=== PATIENT | female | born 1980 | race Hispanic/Latino ===

== ENCOUNTER 2018-04-06 05:28 | Emergency (ER) | payer MEDICAID ==
[2018-04-06] MEDS ORDERED: MOTRIN ONE (05:41)
[2018-04-06] MEDS ORDERED: MOTRIN PO ONE (05:42)
[2018-04-06] MEDS ORDERED: PERCOCET 5/325 ONE (05:46)
[2018-04-06] MEDS ORDERED: PERCOCET 5/325 PO ONE (05:46)
--- NOTE | 2018-04-06 06:22 | XRay Report ---
FINAL REPORT EXAM: XR HAND 3+V RT HISTORY: hand thru window with glass and laceration TECHNIQUE: Three views of the right hand were obtained. FINDINGS: The 4th and 5th fingers are in flexion. There is no evidence of acute displaced fracture or dislocation. The wrist joint is not show any acute changes. The soft tissues show no evidence of radiopaque foreign bodies. IMPRESSION: No acute fracture or dislocation. No evidence of radiopaque foreign bodies in the soft tissues.
--- NOTE | 2018-04-06 07:32 | Emergency Department Report ---
ED Laceration HPI - HPI Chief Complaint: Wound/Laceration Stated Complaint: FALL Time Seen by Provider: 04/06/18 07:28 Occurred When: Today Location: Upper Extremity (right hand) Severity: severe Tetanus Status: Not up to Date Laceration Symptoms: Yes Pain (10/10), No Foreign Body Sensation, No Numbness, No Weakness Other History: This is a 37-year-old patient reports that she tripped over a dog this morning which is once a bathroom and her right hand was injured through the window. She is reporting pain 10 out of 10 to her right hand. Pain is achy and right hand is stiff. No medication taken is that she came directly to the emergency room. She reports that it was bleeding but she placed pressure site. Pain is worse with movement better with rest. Tetanus vaccine is up-to-date ED Review of Systems ROS: Stated complaint: FALL Other details as noted in HPI Constitutional: denies: chills, fever Eyes: denies: eye pain, eye discharge Respiratory: denies: cough, shortness of breath, SOB with exertion, SOB at rest , wheezing Cardiovascular: denies: chest pain, palpitations, edema, syncope Gastrointestinal: as per HPI. denies: nausea, vomiting, diarrhea Genitourinary: denies: discharge Musculoskeletal: joint swelling, arthralgia. denies: back pain Skin: other (laceration to right hand). denies: rash, lesions Neurological: denies: headache, weakness, numbness, paresthesias ED Past Medical Hx - Past Medical History Previous Medical History?: Yes Hx Hypertension: Yes - Surgical History Past Surgical History?: Yes Hx Cholecystectomy: Yes Additional Surgical History: tubal, partial hysterectomy - Family History Family history: hypertension - Social History Smoking Status: Current Every Day Smoker Substance Use Type: None - Medications Home Medications: Home Medications Medication Instructions Recorded Confirmed Last Taken Type Acetaminophen/Codeine [Tylenol 1 tab PO Q6H PRN #12 tab 04/06/18 Unknown Rx /Codeine # 3 tab] Ciprofloxacin HCl [Ciprofloxacin 500 mg PO Q12HR 7 Days #14 tab 04/06/18 Unknown Rx TAB] Ibuprofen [Motrin] 800 mg PO Q8HR PRN #15 tablet 04/06/18 Unknown Rx Laceration Physical Exam - Exam General: Vital signs noted. No distress. Alert and acting appropriately. This is a 37-year-old female well-nourished well-developed in no acute distress. Wound Length (cm): 4 (irregular and circular) Laceration Location: Upper Extremity (right hand fourth and fifth metacarpal bone area) Full Body Front + Back: 1 - Patient 4 cm irregular, flap-like laceration, subcutaneous layer index. Minimal bleeding. Superficial pieces of glass on skin surface that was extensively irrigated. X-ray showed no foreign body or fracture dislocation. Patient is stable and no signs of tendon injury with no rigidity and movement of fingers Laceration Exam: Yes Normal Distal CMS (+2 pulses. No clubbing, cyanosis or edema. No neurovascular compromise), No Foreign Body, No Exposed Tendon, Vessel , or Nerve, No Tendon Injury ED Course Vital Signs 04/06/18 05:37 Temperature 98.4 F Pulse Rate 88 Respiratory 18 Rate Blood Pressure 154/85 O2 Sat by Pulse 96 Oximetry - Reevaluation(s) Reevaluation #1: 04/06/18 09:28 Patient clindamycin 600 mg IM, Motrin 800 mg by mouth, Boostrix 0.5 mL IM and Percocet 5/325 one tablet by mouth with no adverse reaction - Laceration /Wound Repair Right Dorsal Hand Wound Location: upper extremity Wound Length (cm): 4 (CM) Wound Explored: no foreign body removed Irrigated w/ Saline (ccs): 500 Betadine Prep?: Yes Anesthesia: 0.5% Sensorcaine (Marcaine) Volume Anesthetic (ccs): 10 Wound Debrided: extensive Wound Repaired With: sutures Suture Size/Type: 4:0, proline Number of Sutures: 14 Layer Closure?: No Sterile Dressing Applied?: Yes ED Medical Decision Making - Radiology Data Radiology results: report reviewed X-ray of right hand 3 views dictated by radiologist and report reviewed by myself. Patient has no acute fracture or dislocation. No evidence of radiopaque foreign bodies in the soft tissue. Patient: HIMA HIGUERA MR#: [id number] : 1980 Acct:[id number] Age/Sex: 37 / F ADM Date: 04/06/18 Loc: ED Attending Dr: Ordering Physician: ALEJO KELLEY MD Date of Service: 04/06/18 Procedure(s): XR hand 3+V RT Accession Number(s): [id number] cc: ALEJO KELLEY MD Fluoro Time In Minutes: FINAL REPORT EXAM: XR HAND 3+V RT HISTORY: hand thru window with glass and laceration TECHNIQUE: Three views of the right hand were obtained. FINDINGS: The 4th and 5th fingers are in flexion. There is no evidence of acute displaced fracture or dislocation. The wrist joint is not show any acute changes. The soft tissues show no evidence of radiopaque foreign bodies. IMPRESSION: No acute fracture or dislocation. No evidence of radiopaque foreign bodies in the soft tissues. Transcribed By: RB Dictated By: SELINA GAMBOA MD Electronically Authenticated By: SELINA GAMBOA MD Signed Date/Time: 04/06/18616 DD/ 6 TD/TT: 04/06/18616 - Medical Decision Making ED course This is a 37-year-old female here reports that she accidentally cut her right hand on glass this morning when she is getting up to use the bathroom. She is reporting pain 10 out of 10. No numbness or tingling. She is able to move all her extremities including fingers. Patient is here to be evaluated Patient evaluated by myself and found to have a 4 cm subcutaneous layer laceration without any tendon injury. Physical exam fine normal hand movements with no restriction in movement of fingers. She is able to touch all her fingers with her thumb on the right hand without any difficulties. X-ray of right hand dictated by radiologist and reviewed by myself and findings for normal exam without any foreign body. Patient was given Percocet and Motrin for pain which relieved her pain. Tetanus vaccine is updated. Antibiotic given. She voiced understanding after I gave her information on her x-ray results. A/P 1: Simple laceration right hand-laceration repair ,please see procedure note for detail no need for antibiotic. Information given on suture care. Patient is given Percocet 5/325 one tablet, Motrin 800 mg by mouth. Clindamycin 600 mg IM and Boostrix 0.5 mL injection to update tetanus. Patient to return to emergency room in 7-10 days to have sutures removed and to follow-up with her primary care in 2-3 days 2: Arthralgia right hand-controlled with pain medication. Right hand 3 view x- ray negative for fracture or dislocation. Educated on suture care, medication, returning to emergency room for removal of suture and she voiced understanding. Pt discharged home with her family in stable condition with prescription for Motrin, Tylenol 3 and ciprofloxacin. Her vital signs are stable and she is in stable condition and she is to follow-up with her primary care physician in 2-3 days. She voiced understanding the discharge instructions. - Differential Diagnosis fracture open versus closed, laceration Critical care attestation.: If time is entered above; I have spent that time in minutes in the direct care of this critically ill patient, excluding procedure time. ED Disposition Clinical Impression: Arthralgia of right hand Laceration of right hand without complication, excluding fingers Qualifiers: Encounter type: initial encounter Qualified Code(s): S61.411A - Laceration without foreign body of right hand, initial encounter Disposition: TO HOME OR SELFCARE Is pt being admited?: No Does the pt Need Aspirin: No Condition: Stable Instructions: Suture Care (ED), Laceration (ED) Additional Instructions: Please see discharge instruction in acute wound care Apply warm compresses to affected area 4 times a day to facilitate then and increased drainage return to emergency room in 4 days for removal of packing Keep affected area clean and dry Take Tylenol 3 for severe pain and please do not drive or operate heavy machinery while taking this medication Motrin for mild to moderate pain and please take medication with food to prevent nausea or irritation to stomach lining Take ciprofloxacin for infection Return to the emergency room if, he developed fever, chills, increased pain and drainage from site, nausea and vomited, increase in redness and/or weakness. Prescriptions: Acetaminophen/Codeine [Tylenol /Codeine # 3 tab] 1 tab PO Q6H PRN #12 tab PRN Reason: Pain, Moderate (4-6) Ciprofloxacin HCl [Ciprofloxacin TAB] 500 mg PO Q12HR 7 Days #14 tab Ibuprofen [Motrin] 800 mg PO Q8HR PRN #15 tablet PRN Reason: mild to miderate pain Referrals: PRIMARY CARE,MD [Primary Care Provider] - 2-3 Days return to ,ED in 10 days [Other] - 7-10 days Forms: Accompanied Note, Work/School Release Form(ED)
[2018-04-06] MEDS ORDERED: CLEOCIN IM ONE (07:33)
[2018-04-06] MEDS ORDERED: NACL 0.9% IR PRN (08:42)
[2018-04-06] MEDS ORDERED: MARCAINE 0.5% INFILTRATI ONE ×2 (08:45→08:48)
[2018-04-06] MEDS ORDERED: MARCAINE 0.25% INFILTRATI ONE (09:00)
[2018-04-06] MEDS ORDERED: BOOSTRIX IM ONE (09:51)
[2018-04-06 10:07] VITALS: BP 146/81
== END 2018-04-06 10:00 | disposition home or self-care (01) ==
LOC: ED 05:28
DX: S61.411A Laceration without foreign body of right hand, initial encounter (principal); M79.641 Pain in right hand; I10 Essential (primary) hypertension; F17.200 Nicotine dependence, unspecified, uncomplicated; Z90.49 Acquired absence of other specified parts of digestive tract; W18.30XA Fall on same level, unspecified, initial encounter; Y93.89 Activity, other specified; Y99.8 Other external cause status; Y92.89 Other specified places as the place of occurrence of the external cause
CPT/HCPCS: 90471; 90715; 96372

== ENCOUNTER 2019-07-10 11:48 | Emergency (ER) | payer SELFPAY ==
[2019-07-10 12:00] VITALS: BP 144/74
--- NOTE | 2019-07-10 12:00 | Event Note ---
ED Screening Note Date of service: 07/10/19 Time: 11:58 ED Screening Note: This is a 39 y.o. F. that presents to the ER with pruritic rash to genital area x 2 days. PMH of HTN Current smoker This initial assessment/diagnostic orders/clinical plan/treatment(s) is/are subject to change based on patients health status, clinical progression and re- assessment by fellow clinical providers in the ED. Further treatment and workup at subsequent clinical providers discretion. Patient/guardian urged not to elope from the ED as their condition may be serious if not clinically assessed and managed. Initial orders include:
--- NOTE | 2019-07-10 12:32 | Emergency Department Report ---
ED Rash HPI - HPI Chief Complaint: Skin Rash Stated Complaint: VAG PAIN/RASH Time Seen by Provider: 07/10/19 11:58 Duration: 1 Day Location: Abdomen, Other (groin area) Suspected Cause: Unknown Rash Symptoms: Yes Itching (to rash site), No Tongue/Oral Swelling, No Breathing Difficulties, No Choking Sensation, No Wheezing/Dyspnea, No Peeling, No Blistering, No Fever, No Lightheaded, No Malaise, No Myalgias Severity: severe (8/10 and sharp) Other History: Patient reports that she woke up this morning without rash to her abdomen and vaginal area and she does not know what it is. Did not eat anything or taken anything unusual. She reports it is itchy and denies any cough, respiratory distress, chest pain, wheezing, sore throat or difficulty swallowing. She is had similar rash in the area before but reports that it is sharp pain at 8 out of 10. Denies any drainage at site. She has medication allergies and reports that she did not use any medication that she is allergic to no does she use latex that she is allergic to latex. No medication taken prior to coming to the emergency room. ED Review of Systems ROS: Stated complaint: VAG PAIN/RASH Other details as noted in HPI Constitutional: denies: chills, fever ENT: denies: throat pain, congestion Respiratory: denies: cough, shortness of breath, SOB with exertion, wheezing Cardiovascular: denies: dyspnea on exertion Gastrointestinal: denies: abdominal pain, nausea, vomiting Musculoskeletal: denies: joint swelling, arthralgia Skin: rash (painful), pruritus Neurological: denies: headache ED Past Medical Hx - Past Medical History Previous Medical History?: Yes Hx Hypertension: Yes - Surgical History Past Surgical History?: Yes Hx Cholecystectomy: Yes Additional Surgical History: tubal, partial hysterectomy - Family History Family history: hypertension - Social History Smoking Status: Current Every Day Smoker Substance Use Type: None - Medications Home Medications: Home Medications Medication Instructions Recorded Confirmed Last Taken Type Acetaminophen/Codeine [Tylenol 1 tab PO Q6H PRN #12 tab 04/06/18 Unknown Rx /Codeine # 3 tab] Ciprofloxacin HCl [Ciprofloxacin 500 mg PO Q12HR 7 Days #14 tab 04/06/18 Unknown Rx TAB] Ibuprofen [Motrin] 800 mg PO Q8HR PRN #15 tablet 04/06/18 Unknown Rx Clindamycin [Clindamycin CAP] 300 mg PO Q8H 10 Days #30 cap 07/10/19 Unknown Rx Econazole 1% [Spectazole] 1 applicatio TP BID 7 Days #1 tube 07/10/19 Unknown Rx Fluconazole [Diflucan TAB] 200 mg PO QDAY 3 Days #3 tablet 07/10/19 Unknown Rx Rash Exam - Exam General: Vital signs noted. No distress. Alert and acting appropriately. This is a 39-year-old female well-nourished well-developed in no acute distress. HEENT: No Periorbital Edema, No Conjuctival Injection, No Chemosis, No Perioral Edema, No Tongue Edema, No Uvular Edema, No Compromised Airway, No Drooling Lungs: Yes Good Air Exchange, No Wheezes, No Ronchi, No Stridor, No Cough, No Labored Respirations, No Retractions, No Use of Accessory Muscles, No Other Abnormal Lung Sounds Heart: Yes Regular, No Murmur Front/Back of Body, Lg (Color): 1 - Erythema, rash to bilateral groin area under her skin folds. Noted tomorrow and pubis underskin full. Nontender to palpate. Flat without any induration and appearing to be fungal infection with superimposed mild cellulitis. Area is warm to touch. Skin: Yes Excoriations (to skin folds mons pubis and bilateral groin area), Yes Erythema (mon pubis and the bilateral groin area), No Weeping, No Tenderness (rash sites), No Edema, No Encrustations, No Other Other: Positive: Abdomen Normal, Neurologic Normal, Musculoskeletal Normal ED Course Vital Signs 07/10/19 11:58 Temperature 98.5 F Pulse Rate 82 Respiratory 18 Rate Blood Pressure 144/74 O2 Sat by Pulse 97 Oximetry - Reevaluation(s) Reevaluation #1: 07/10/19 12:42 Patient stable throughout ED course and will be discharged home on medication for fungal and bacterial rash ED Medical Decision Making - Medical Decision Making This is a 39-year-old female with physical findings for fungal infection of the scan with superimposed bacterial infection. She stable and in no acute distress and no signs of anaphylaxis. I discussed the patient that she has to keep the area beneath her skin folds clean and dry as infection is easily grown in areas that is warm and moist. I also discussed treatment plan, medication and diagnosis with her and she voiced understanding. I discussed with her that she needs to follow-up with a primary care physician which she does not have one so I will refer her to Dr. Elena Arreguin and [facility] along with tomato grader as she says she has Medicaid. Patient discharged home in stable condition with prescription for clindamycin and Diflucan on with antifungal a zole ointment. She is in stable condition. Critical care attestation.: If time is entered above; I have spent that time in minutes in the direct care of this critically ill patient, excluding procedure time. ED Disposition Clinical Impression: Tinea corporis, Pelvic cellulitis in female Disposition: [id number] TO HOME OR SELFCARE Is pt being admited?: No Does the pt Need Aspirin: No Condition: Stable Instructions: Cellulitis (ED), Tinea Corporis (ED) Additional Instructions: Please keep affected area clean and dry See tomato grader and primary care in 2-3 days If area becomes worse, return to the emergency room. Take medication as prescribed Prescriptions: Clindamycin [Clindamycin CAP] 300 mg PO Q8H 10 Days #30 cap Econazole 1% [Spectazole] 1 applicatio TP BID 7 Days #1 tube Referrals: JAUN HUNTER MD [Staff Physician] - 2-3 Days NADIRA DONNELLY MD [Staff Physician] - 2-3 Days [facility] [Outside] - 2-3 Days Forms: Work/School Release Form(ED)
== END 2019-07-10 13:19 | disposition home or self-care (01) ==
LOC: ED 11:48
DX: N73.2 Unspecified parametritis and pelvic cellulitis (principal); B35.4 Tinea corporis; I10 Essential (primary) hypertension; F17.200 Nicotine dependence, unspecified, uncomplicated; Z90.711 Acquired absence of uterus with remaining cervical stump; Z90.49 Acquired absence of other specified parts of digestive tract; Z91.040 Latex allergy status; Z88.0 Allergy status to penicillin; Z88.2 Allergy status to sulfonamides

== ENCOUNTER 2019-09-09 23:05 | Emergency (ER) | payer SELFPAY ==
[2019-09-10] MEDS ORDERED: IPRATROPIUM/ALBUTEROL SULFATE 3 ML AMPUL.NEB IH ONE (03:08)
[2019-09-10] MEDS ORDERED: IBUPROFEN 800 MG TAB PO ONE (03:08)
[2019-09-10] MEDS ORDERED: predniSONE 20 MG TAB PO ONE (03:08)
[2019-09-10] MEDS ORDERED: ONDANSETRON 4 MG ODT TAB PO ONE (03:09)
--- NOTE | 2019-09-10 03:51 | XRay Report ---
CHEST 2 VIEWS INDICATION / CLINICAL INFORMATION: cough, fever. COMPARISON: 08/10/2015 FINDINGS: SUPPORT DEVICES: None. HEART / MEDIASTINUM: No significant abnormality. LUNGS / PLEURA: There is minimal lingular density likely a small area of pneumonia. Lungs and pleural spaces otherwise are clear with no infiltrate, edema or effusion. No pneumothorax. ADDITIONAL FINDINGS: No significant additional findings. IMPRESSION: 1. Minimal lingular pneumonia Signer Name: Nathan Arita MD Signed: 09/10/2019 3:47 AM Workstation Name: [id number]
[2019-09-10] MEDS ORDERED: levoFLOXacin 750 MG TAB PO ONE (04:07)
[2019-09-10 04:10] VITALS: BP 111/61
--- NOTE | 2019-09-10 04:13 | Emergency Department Report ---
- General Chief Complaint: Upper Respiratory Infection Stated Complaint: FLU LIKE SX Source: patient Mode of arrival: Ambulatory Limitations: No Limitations - History of Present Illness Initial Comments: Patient is a 39-year-old white female with no past medical history except chronic tobacco abuse who presents to the ED with complaint of acute onset persistent nasal and sinus congestion, dry cough, wheezing, subjective fever and chills, diffuse body aches and headache for the last 3 days. Patient denies dizziness, chest pain, shortness of breath, abdominal pain, sore throat, nausea, vomiting, diarrhea, change in vision or syncope. Patient states that she has been taking pwpm-ild-wlkelyc decongestants with no relief. MD Complaint: fever, cough, rhinorrhea, nasal congestion, sinus pain -: Sudden, days(s) (3) Severity: severe Severity scale (0 -10): 7 Quality: sharp, aching Consistency: constant Improves With: nothing Worsens With: nothing Associated Symptoms: denies other symptoms, fever, chills, myalgias, headache, rhinorrhea, nasal congestion, cough. denies: sore throat, stiff neck, chest pain, shortness of breath, abdominal pain, nausea, vomiting, diarrhea, dysuria, rash, right sweats, weight loss, hoarseness, ear pain Treatments Prior to Arrival: none - Related Data Previous Rx's Medication Instructions Recorded Last Taken Type Acetaminophen/Codeine [Tylenol 1 tab PO Q6H PRN #12 tab 04/06/18 Unknown Rx /Codeine # 3 tab] Ciprofloxacin HCl [Ciprofloxacin 500 mg PO Q12HR 7 Days #14 tab 04/06/18 Unknown Rx TAB] Clindamycin [Clindamycin CAP] 300 mg PO Q8H 10 Days #30 cap 07/10/19 Unknown Rx Econazole 1% [Spectazole] 1 applicatio TP BID 7 Days #1 tube 07/10/19 Unknown Rx Fluconazole [Diflucan TAB] 200 mg PO QDAY 3 Days #3 tablet 07/10/19 Unknown Rx ALBUTEROL Inhaler (OR & NICU) 1 - 2 puff IH Q6H PRN #1 inh 09/10/19 Unknown Rx [ProAir HFA Inhaler] Benzonatate [Tessalon Perles] 100 mg PO Q8HR #30 capsule 09/10/19 Unknown Rx Cetirizine HCl [Zyrtec 10mg tab] 10 mg PO DAILY #30 tablet 09/10/19 Unknown Rx Ibuprofen [Motrin 800 MG tab] 800 mg PO Q8HR PRN #24 tablet 09/10/19 Unknown Rx Prednisone [predniSONE 10 mg 10 mg PO .TAPER #21 tab.ds.pk 09/10/19 Unknown Rx (6-Day Pack, 21 Tabs)] levoFLOXacin [Levaquin] 750 mg PO QDAY #7 tablet 09/10/19 Unknown Rx Allergies Allergy/AdvReac Type Severity Reaction Status Date / Time latex Allergy Rash Verified 09/09/19 23:22 Penicillins Allergy Unknown Verified 09/09/19 23:22 sulfamethoxazole Allergy Hives Verified 09/09/19 23:22 [From Bactrim] trimethoprim [From Bactrim] Allergy Hives Verified 09/09/19 23:22 ED Review of Systems ROS: Stated complaint: FLU LIKE SX Other details as noted in HPI Constitutional: chills, fever, malaise Eyes: denies: eye pain, eye discharge, vision change ENT: congestion. denies: ear pain, throat pain Respiratory: cough, shortness of breath. denies: wheezing Cardiovascular: denies: chest pain, palpitations Endocrine: no symptoms reported Gastrointestinal: denies: abdominal pain, nausea, vomiting, diarrhea Genitourinary: denies: urgency, dysuria, discharge Musculoskeletal: denies: back pain, joint swelling, arthralgia Skin: denies: rash, lesions Neurological: headache. denies: weakness, paresthesias Psychiatric: denies: anxiety, depression Hematological/Lymphatic: denies: easy bleeding, easy bruising ED Past Medical Hx - Past Medical History Previous Medical History?: Yes Hx Hypertension: Yes - Surgical History Past Surgical History?: Yes Hx Cholecystectomy: Yes Additional Surgical History: tubal, partial hysterectomy - Social History Smoking Status: Current Every Day Smoker Substance Use Type: None - Medications Home Medications: Home Medications Medication Instructions Recorded Confirmed Last Taken Type Acetaminophen/Codeine [Tylenol 1 tab PO Q6H PRN #12 tab 04/06/18 Unknown Rx /Codeine # 3 tab] Ciprofloxacin HCl [Ciprofloxacin 500 mg PO Q12HR 7 Days #14 tab 04/06/18 Unknown Rx TAB] Clindamycin [Clindamycin CAP] 300 mg PO Q8H 10 Days #30 cap 07/10/19 Unknown Rx Econazole 1% [Spectazole] 1 applicatio TP BID 7 Days #1 tube 07/10/19 Unknown Rx Fluconazole [Diflucan TAB] 200 mg PO QDAY 3 Days #3 tablet 07/10/19 Unknown Rx ALBUTEROL Inhaler (OR & NICU) 1 - 2 puff IH Q6H PRN #1 inh 09/10/19 Unknown Rx [ProAir HFA Inhaler] Benzonatate [Tessalon Perles] 100 mg PO Q8HR #30 capsule 09/10/19 Unknown Rx Cetirizine HCl [Zyrtec 10mg tab] 10 mg PO DAILY #30 tablet 09/10/19 Unknown Rx Ibuprofen [Motrin 800 MG tab] 800 mg PO Q8HR PRN #24 tablet 09/10/19 Unknown Rx Prednisone [predniSONE 10 mg 10 mg PO .TAPER #21 tab.ds.pk 09/10/19 Unknown Rx (6-Day Pack, 21 Tabs)] levoFLOXacin [Levaquin] 750 mg PO QDAY #7 tablet 09/10/19 Unknown Rx ED Physical Exam - General Limitations: No Limitations General appearance: alert, in no apparent distress - Head Head exam: Present: atraumatic, normocephalic, normal inspection - Eye Eye exam: Present: normal appearance, PERRL, EOMI Pupils: Present: normal accommodation - ENT ENT exam: Present: normal orophraynx, mucous membranes moist, TM's normal bilaterally, normal external ear exam, other (grossly congested nasal passages, palpable frontal sinus tenderness) - Neck Neck exam: Present: normal inspection, full ROM, lymphadenopathy - Respiratory Respiratory exam: Present: wheezes (mildly diffuse coarse wheezes throughout). Absent: respiratory distress, rales, rhonchi, stridor, chest wall tenderness, prolonged expiratory - Cardiovascular Cardiovascular Exam: Present: regular rate, normal rhythm, normal heart sounds. Absent: systolic murmur, diastolic murmur, rubs, gallop - GI/Abdominal GI/Abdominal exam: Present: soft, normal bowel sounds. Absent: tenderness, guarding, hyperactive bowel sounds, organomegaly - Extremities Exam Extremities exam: Present: normal inspection, full ROM, normal capillary refill - Back Exam Back exam: Present: normal inspection, full ROM. Absent: muscle spasm, paraspinal tenderness - Neurological Exam Neurological exam: Present: alert, oriented X3, CN II-XII intact, normal gait, reflexes normal - Psychiatric Psychiatric exam: Present: normal affect, normal mood - Skin Skin exam: Present: warm, dry, intact, normal color. Absent: rash ED Course Vital Signs 09/09/19 09/10/19 23:25 03:35 Temperature 98.5 F Pulse Rate 76 Respiratory 20 20 Rate Blood Pressure 150/83 O2 Sat by Pulse 97 Oximetry ED Medical Decision Making - Radiology Data Radiology results: report reviewed, image reviewed Findings [facility] [address] [place] [address] XRay Report Signed Patient: HIMA HIGUERA MR#: [id number] : 1980 Acct:[id number] Age/Sex: 39 / F ADM Date: 09/09/19 Loc: ED Attending Dr: Ordering Physician: SELINA CORRAL Date of Service: 09/10/19 Procedure(s): XR chest routine 2V Accession Number(s): [id number] cc: SELINA CORRAL Fluoro Time In Minutes: CHEST 2 VIEWS INDICATION / CLINICAL INFORMATION: cough, fever. COMPARISON: 08/10/2015 FINDINGS: SUPPORT DEVICES: None. HEART / MEDIASTINUM: No significant abnormality. LUNGS / PLEURA: There is minimal lingular density likely a small area of pneumonia. Lungs and pleural spaces otherwise are clear with no infiltrate, edema or effusion. No pneumothorax. ADDITIONAL FINDINGS: No significant additional findings. IMPRESSION: 1. Minimal lingular pneumonia Signer Name: Nathan Arita MD Signed: 09/10/2019 3:47 AM Workstation Name: [id number] Transcribed By: Dictated By: Nathan Arita MD Electronically Authenticated By: Nathan Arita MD Signed Date/Time: 09/10/19346 DD/ 5 TD/TT: - Medical Decision Making This is a 49-year-old female who presented to the ED with nasal and sinus congestion, subjective fever, chills, dry cough with wheezing and shortness of breath, diffuse body aches and pains for the last 3 days. In the ED, patient is alert and oriented 3 and is not in any distress. Chest x-ray shows minimal lingular pneumonia. Patient was treated in the ED with DuoNeb and prednisone. Patient also received initial oral Levaquin 750 mg by mouth 1. On reevaluation, patient's wheezing has resolved and patient was discharged home on medications including antibiotics for suspected lingular pneumonia. Patient was advised to drink plenty of fluids and to take medications and follow up with her primary care physician in 7-10 days for reevaluation or return to the ED immediately if symptoms get worse. - Differential Diagnosis Bronchitis; URI; Pneumonia; Flu; Strep Critical care attestation.: If time is entered above; I have spent that time in minutes in the direct care of this critically ill patient, excluding procedure time. ED Disposition Clinical Impression: Acute upper respiratory infection, Fever with chills Community acquired pneumonia Qualifiers: Laterality: unspecified laterality Qualified Code(s): J18.9 - Pneumonia, unspecified organism Disposition: TO HOME OR SELFCARE Is pt being admited?: No Does the pt Need Aspirin: No Condition: Stable Instructions: Bacterial Pneumonia (ED), Community-acquired Pneumonia (ED), Upper Respiratory Infection (ED) Additional Instructions: Take medications with food, drink plenty of fluids and follow-up with your primary care physician in 5-7 days for reevaluation. Return to the emergency department immediately for further evaluation if his symptoms get worse. Prescriptions: levoFLOXacin [Levaquin] 750 mg PO QDAY #7 tablet Ibuprofen [Motrin 800 MG tab] 800 mg PO Q8HR PRN #24 tablet PRN Reason: mild to miderate pain Prednisone [predniSONE 10 mg (6-Day Pack, 21 Tabs)] 10 mg PO .TAPER #21 tab.ds.pk ALBUTEROL Inhaler (OR & NICU) [ProAir HFA Inhaler] 1 - 2 puff IH Q6H PRN #1 inh PRN Reason: Dyspnea Benzonatate [Tessalon Perles] 100 mg PO Q8HR #30 capsule Cetirizine HCl [Zyrtec 10mg tab] 10 mg PO DAILY #30 tablet Referrals: JAUN HUNTER MD [Staff Physician] - 7-10 days Forms: Work/School Release Form(ED) Time of Disposition: 04:10 Print Language: BENGALI
== END 2019-09-10 04:25 | disposition home or self-care (01) ==
LOC: ED 23:05
DX: J18.9 Pneumonia, unspecified organism (principal); J06.9 Acute upper respiratory infection, unspecified; I10 Essential (primary) hypertension; F17.200 Nicotine dependence, unspecified, uncomplicated; Z98.51 Tubal ligation status; Z90.710 Acquired absence of both cervix and uterus; Z79.899 Other long term (current) drug therapy; Z88.0 Allergy status to penicillin; Z88.2 Allergy status to sulfonamides; Z91.040 Latex allergy status
CPT/HCPCS: 71046; 94640; 99283; J7512; Q0162

== ENCOUNTER 2020-06-27 12:56 | Emergency (ER) | payer SELFPAY ==
[2020-06-27 13:20] VITALS: BP 160/83
[2020-06-27] MEDS ORDERED: ALBUTEROL 2.5 MG/3 ML NEBU IH ONE (15:34)
[2020-06-27] MEDS ORDERED: IPRATROPIUM 0.02% NEBU 2.5 ML IH ONE (15:34)
[2020-06-27] MEDS ORDERED: dexAMETHasone 20 MG/5 ML VIAL IM ONE (15:34)
--- NOTE | 2020-06-27 15:49 | XRay Report ---
XR chest routine 2V INDICATION / CLINICAL INFORMATION: cough, SOB COMPARISON: September 10, 2019 FINDINGS: SUPPORT DEVICES: None. HEART / MEDIASTINUM: No significant abnormality. LUNGS / PLEURA: Lungs are clear. Costophrenic sulci are sharp. No pneumothorax. ADDITIONAL FINDINGS: No significant additional findings. IMPRESSION: 1. No acute findings. Signer Name: Frederick Mora MD Signed: 06/27/2020 3:44 PM Workstation Name: [id number]
--- NOTE | 2020-06-27 15:59 | Emergency Department Report ---
- General Chief Complaint: Upper Respiratory Infection Stated Complaint: COUGHINGHEADACHE/BODYACHE Time Seen by Provider: 06/27/20 14:57 Source: patient Mode of arrival: Ambulatory Limitations: No Limitations - History of Present Illness Initial Comments: Patient is a 40-year-old female presents emergency room with complaints of URI symptoms that began 3 days ago. She has associated cough, chest congestion, headache, rhinorrhea, diarrhea, shortness of breath. She denies any fever, vomiting, abdominal pain, chest pain. She denies any sick contacts. She denies any recent travel. She denies any past medical history. She has an allergy to latex, penicillin, Bactrim. She states that she is an every day smoker. She states her last menstrual cycle was 5 years ago secondary to a partial hysterectomy. - Related Data Previous Rx's Medication Instructions Recorded Last Taken Type Acetaminophen/Codeine [Tylenol 1 tab PO Q6H PRN #12 tab 04/06/18 Unknown Rx /Codeine # 3 tab] Ciprofloxacin HCl [Ciprofloxacin 500 mg PO Q12HR 7 Days #14 tab 04/06/18 Unknown Rx TAB] Clindamycin [Clindamycin CAP] 300 mg PO Q8H 10 Days #30 cap 07/10/19 Unknown Rx Econazole 1% [Spectazole] 1 applicatio TP BID 7 Days #1 tube 07/10/19 Unknown Rx Fluconazole [Diflucan TAB] 200 mg PO QDAY 3 Days #3 tablet 07/10/19 Unknown Rx Albuterol Mdi (or & Nicu Only) 1 - 2 puff IH Q6H PRN #1 inh 09/10/19 Unknown Rx [ProAir HFA Inhaler] Benzonatate [Tessalon Perles] 100 mg PO Q8HR #30 capsule 09/10/19 Unknown Rx Cetirizine HCl [Zyrtec 10mg tab] 10 mg PO DAILY #30 tablet 09/10/19 Unknown Rx Ibuprofen [Motrin 800 MG tab] 800 mg PO Q8HR PRN #24 tablet 09/10/19 Unknown Rx Prednisone [predniSONE 10 mg 10 mg PO .TAPER #21 tab.ds.pk 09/10/19 Unknown Rx (6-Day Pack, 21 Tabs)] levoFLOXacin [Levaquin] 750 mg PO QDAY #7 tablet 09/10/19 Unknown Rx Albuterol Sulfate [Proventil Hfa] 6.7 gm IH TID PRN #1 hfa.aer.ad 06/27/20 Unknown Rx Azithromycin [Zithromax TAB] 250 mg PO QDAY 5 Days #6 tablet 06/27/20 Unknown Rx Prednisone [predniSONE 10 mg 10 mg PO .TAPER #1 tab.ds.pk 06/27/20 Unknown Rx (6-Day Pack, 21 Tabs)] Allergies Allergy/AdvReac Type Severity Reaction Status Date / Time latex Allergy Rash Verified 09/09/19 23:22 Penicillins Allergy Unknown Verified 09/09/19 23:22 sulfamethoxazole Allergy Hives Verified 09/09/19 23:22 [From Bactrim] trimethoprim [From Bactrim] Allergy Hives Verified 09/09/19 23:22 ED Review of Systems ROS: Stated complaint: COUGHINGHEADACHE/BODYACHE Other details as noted in HPI Comment: All other systems reviewed and negative ED Past Medical Hx - Past Medical History Previous Medical History?: Yes Hx Hypertension: Yes - Surgical History Past Surgical History?: Yes Hx Cholecystectomy: Yes Additional Surgical History: tubal, partial hysterectomy - Social History Smoking Status: Current Every Day Smoker Substance Use Type: None - Medications Home Medications: Home Medications Medication Instructions Recorded Confirmed Last Taken Type Acetaminophen/Codeine [Tylenol 1 tab PO Q6H PRN #12 tab 04/06/18 Unknown Rx /Codeine # 3 tab] Ciprofloxacin HCl [Ciprofloxacin 500 mg PO Q12HR 7 Days #14 tab 04/06/18 Unknown Rx TAB] Clindamycin [Clindamycin CAP] 300 mg PO Q8H 10 Days #30 cap 07/10/19 Unknown Rx Econazole 1% [Spectazole] 1 applicatio TP BID 7 Days #1 tube 07/10/19 Unknown Rx Fluconazole [Diflucan TAB] 200 mg PO QDAY 3 Days #3 tablet 07/10/19 Unknown Rx Albuterol Mdi (or & Nicu Only) 1 - 2 puff IH Q6H PRN #1 inh 09/10/19 Unknown Rx [ProAir HFA Inhaler] Benzonatate [Tessalon Perles] 100 mg PO Q8HR #30 capsule 09/10/19 Unknown Rx Cetirizine HCl [Zyrtec 10mg tab] 10 mg PO DAILY #30 tablet 09/10/19 Unknown Rx Ibuprofen [Motrin 800 MG tab] 800 mg PO Q8HR PRN #24 tablet 09/10/19 Unknown Rx Prednisone [predniSONE 10 mg 10 mg PO .TAPER #21 tab.ds.pk 09/10/19 Unknown Rx (6-Day Pack, 21 Tabs)] levoFLOXacin [Levaquin] 750 mg PO QDAY #7 tablet 09/10/19 Unknown Rx Albuterol Sulfate [Proventil Hfa] 6.7 gm IH TID PRN #1 hfa.aer.ad 06/27/20 Unknown Rx Azithromycin [Zithromax TAB] 250 mg PO QDAY 5 Days #6 tablet 06/27/20 Unknown Rx Prednisone [predniSONE 10 mg 10 mg PO .TAPER #1 tab.ds.pk 06/27/20 Unknown Rx (6-Day Pack, 21 Tabs)] ED Physical Exam - General Limitations: No Limitations General appearance: alert, in no apparent distress - Head Head exam: Present: atraumatic, normocephalic - Eye Eye exam: Present: normal appearance - ENT ENT exam: Present: mucous membranes moist - Respiratory Respiratory exam: Present: wheezes (bilaterally expiratory), rhonchi (bilaterally ). Absent: respiratory distress, rales, stridor, chest wall tenderness, accessory muscle use - Cardiovascular Cardiovascular Exam: Present: regular rate, normal rhythm, normal heart sounds. Absent: systolic murmur, diastolic murmur, rubs, gallop - Neurological Exam Neurological exam: Present: alert, oriented X3 - Psychiatric Psychiatric exam: Present: normal affect, normal mood - Skin Skin exam: Present: warm, dry, intact ED Course Vital Signs 06/27/20 06/27/20 13:16 16:43 Temperature 98.9 F Pulse Rate 85 Pulse Rate [ 82 Posterior Bilateral Throughout] Respiratory 16 Rate Respiratory 20 Rate [Posterior Bilateral Throughout] Blood Pressure 160/83 [Right] O2 Sat by Pulse 99 Oximetry ED Medical Decision Making - Radiology Data Radiology results: report reviewed XR chest routine 2V INDICATION / CLINICAL INFORMATION: cough, SOB COMPARISON: September 10, 2019 FINDINGS: SUPPORT DEVICES: None. HEART / MEDIASTINUM: No significant abnormality. LUNGS / PLEURA: Lungs are clear. Costophrenic sulci are sharp. No pneumothorax. ADDITIONAL FINDINGS: No significant additional findings. IMPRESSION: 1. No acute findings. Signer Name: Frederick Mora MD Signed: 06/27/2020 3:44 PM Workstation Name: [id number] Transcribed By: YEN Dictated By: Frederick Mora MD Electronically Authenticated By: Frederick Mora MD Signed Date/Time: 06/27/201543 DD/ 43 TD/TT: - Medical Decision Making Patient is a 40-year-old female presents emergency room with complaints of URI symptoms that began 3 days ago. She has associated cough, chest congestion, headache, rhinorrhea, diarrhea, shortness of breath. She denies any fever, vomiting, abdominal pain, chest pain. She denies any sick contacts. She denies any recent travel. She denies any past medical history. She has an allergy to latex, penicillin, Bactrim. She states that she is an every day smoker. She states her last menstrual cycle was 5 years ago secondary to a partial hysterectomy. VSS. on exam: Patient has expiratory wheezing and rhonchi bilaterally, no respiratory distress, no accessory muscle use. CXR: 1. No acute findings. Patient given breathing treatment and steroids IM and breathing significantly improved, she states that she feels much better and can breathe better, she is ready to go home. Patient will be diagnosed with acute bronchitis, discussed smoking cessation with patient. Patient given prescription for albuterol inhaler, azithromycin, prednisone. Patient is presen ting with these symptoms during COVID-19 pandemic, discussed the possibility of COVID 19 with patient, discussed strict return precautions, discussed outpatient testing, discussed self quarantine. Patient does not meet hospital criteria for admission or for hospital COVID-19 testing. advised pt Please take medication as prescribed. Please increase your fluid intake over the next several days. May take Tylenol as needed for fever or body aches. May take iuuh-hhk-sbjvrpp cold symptom relief medication such as Mucinex or TheraFlu. Follow-up with a primary care doctor for reexamination. Return to emergency room immediately for any new or worsening symptoms including but not limited to difficulty breathing, shortness of breath, severe chest pain, unable to tolerate by mouth intake, etc. Please self quarantine for 2 weeks from the onset of your symptoms. Please do not go out in public. If you are around others at home please wear a mask. If you need to cough or sneeze please do so in a napkin and immediately throw it away and immediately wash your hands. Wash your hands frequently. Wipe everything down. Recommend for you to get COVID-19 testing, may have this done at primary care doctor, health department, [facility]. - Differential Diagnosis PNA, acute bronchitis, asthma, URI, reactive airway, viral syndrome,COVID19 Critical care attestation.: If time is entered above; I have spent that time in minutes in the direct care of this critically ill patient, excluding procedure time. ED Disposition Clinical Impression: Acute bronchitis Qualifiers: Bronchitis organism: unspecified organism Qualified Code(s): J20.9 - Acute bronchitis, unspecified Disposition: DC-01 TO HOME OR SELFCARE Is pt being admited?: No Does the pt Need Aspirin: No Condition: Stable Instructions: COVID-19, Acute Bronchitis (ED) Additional Instructions: Please take medication as prescribed. Please increase your fluid intake over the next several days. May take Tylenol as needed for fever or body aches. May take amga-qgf-ezjylxe cold symptom relief medication such as Mucinex or TheraFlu. Follow-up with a primary care doctor for reexamination. Return to emergency room immediately for any new or worsening symptoms including but not limited to difficulty breathing, shortness of breath, severe chest pain, unable to tolerate by mouth intake, etc. Please self quarantine for 2 weeks from the onset of your symptoms. Please do not go out in public. If you are around ot hers at home please wear a mask. If you need to cough or sneeze please do so in a napkin and immediately throw it away and immediately wash your hands. Wash your hands frequently. Wipe everything down. Recommend for you to get COVID-19 testing, may have this done at primary care doctor, health department, [facility] center. Prescriptions: Prednisone [predniSONE 10 mg (6-Day Pack, 21 Tabs)] 10 mg PO .TAPER #1 tab.ds.pk Albuterol Sulfate [Proventil Hfa] 6.7 gm IH TID PRN #1 hfa.aer.ad PRN Reason: Wheezing Azithromycin [Zithromax TAB] 250 mg PO QDAY 5 Days #6 tablet Referrals: YOON GABRIEL MD [Primary Care Provider] - 2-3 Days JAUN HUNTER MD [Staff Physician] - 2-3 Days [facility] [Provider Group] - 2-3 Days Forms: Work/School Release Form(ED) Time of Disposition: 16:47 Print Language: NIGERIEN
== END 2020-06-27 17:22 | disposition home or self-care (01) ==
LOC: ED 12:56
DX: J20.9 Acute bronchitis, unspecified (principal); Z88.8 Allergy status to other drugs, medicaments and biological substances; Z88.0 Allergy status to penicillin; Z91.040 Latex allergy status
CPT/HCPCS: 71046; 94644; 96372; 99283; J1100